=== PATIENT | male | born 1975 | race African-American/Black ===

== ENCOUNTER 2021-01-07 13:29 | Emergency (ER) | payer OTHER ==
[~2021-01-07] VITALS: Ht 190.5 cm; Wt 113.4 kg
[2021-01-07 13:40] VITALS: BP 144/100
[2021-01-07 16:41] LABS: HEMATOCRIT 45.1 % (42.0-52.0); HEMOGLOBIN 15.1 gm/dL (14.0-18.0); MCHC 33.5 g/dL (28.0-37.0); MCV 83.5 fL (80.0-100.0); RBC 5.4 mil/uL (4.50-6.00); RDW 13.9 % (10.5-14.5); WBC 4.3 thou/uL (4.0-11.0)
[2021-01-07 16:55] LABS: CALCIUM 9.3 mg/dL (8.5-10.1); CREATININE 1.2 mg/dL (0.7-1.3); POTASSIUM 3.9 mmol/L (3.5-5.1)
[2021-01-07] MEDS ORDERED: MOBIC7.5 MG PO (16:55)
== END 2021-01-07 17:02 | disposition home or self-care (01) ==
LOC: ER 13:29
PROVIDERS: Nurse Practitioner
DX: R10.32 Left lower quadrant pain (principal); M25.522 Pain in left elbow; E11.9 Type 2 diabetes mellitus without complications; V43.52XA Car driver injured in collision with other type car in traffic accident, initial encounter; Y93.89 Activity, other specified; Y92.89 Other specified places as the place of occurrence of the external cause; Y99.8 Other external cause status